=== PATIENT | male | born 1945 | race Caucasian/White ===

== ENCOUNTER 2017-08-03 12:54 | Inpatient (IN) | payer OTHER ==
[2017-08-03 13:27] LABS: HEMATOCRIT 57.4 % (38.0-50.0); HEMOGLOBIN 19.2 G/DL (12.5-16.6); MCH 32.5 PG (29.0-34.0); MCHC 33.4 G/DL (30.0-36.0); MCV 97.3 FL (86-99); PLATELET COUNT 201 K/uL (156-360); RBC DIS.WIDTH-CV 14.9 % (11.8-14.6); RBC DIS.WIDTH-SD 53.5 % (39-53); WHITE BLOOD COUNT 8.4 K/uL (4.1-10.2)
[2017-08-03 13:49] LABS: TROP-I INTERPRETATION NEGATIVE; TROPONIN-I 0.02 ng/mL (0.0-0.30)
[2017-08-03 14:02] LABS: ALBUMIN 4.1 G/DL (3.2-4.8); CHLORIDE 98 MEQ/L (99-109); POTASSIUM 5.5 MEQ/L (3.7-5.4); SODIUM 134 MEQ/L (136-147); TOTAL BILIRUBIN 0.6 MG/DL (0.0-1.0)
[2017-08-03 14:08] LABS: ALKALINE PHOSPHATASE 95 IU/L (3-129); ALT (GPT) 20 IU/L (3-49); AST (GOT) 35 IU/L (2-34); CREATININE 0.9 MG/DL (0.6-1.3); GFR ESTIMATE (CALCULATED) > 59 mL/min/ (58.99-99999); GLUCOSE 101 mg/dL (70-99); TOTAL PROTEIN 6.9 G/DL (6.4-8.3); UREA NITROGEN (BUN) 16 mg/dL (9-23)
[2017-08-03 14:09] LABS: ANISOCYTOSIS 1+; BASOPHIL (%) 0.1 % (0-1); EOSINOPHIL (%) 0 % (0-5); IMMATURE GRANULOCYTE (%) 0.4 % (0.0-0.7); LYMPHOCYTE COUNT 0.6 K/uL (1.0-2.8); MACROCYTES 1+; MONOCYTE (%) 9.5 % (3-12); MONOCYTE COUNT 0.8 K/uL (0-0.8); PLAT.SUFFICIENCY ADEQUATE
[2017-08-03 14:13] LABS: BASE EXCESS -1.1 mEq/L (-3 to +3); BICARBONATE 25.4 mEq/L (22-26); CARBOXY HGB 1.4 % (0-5); PO2 69 mm Hg (80-100); pH 7.34 (7.35-7.45)
[2017-08-03 14:14] LABS: COMMENTS - BLOOD GASES A+C+; DEVICE HHFNC; FI02 100 %; O2 FLOW 40 L/MIN; PCO2 47 mm Hg (35-45); SITE RR
[2017-08-03 14:42] LABS: POTASSIUM 5.4 MEQ/L (3.7-5.4)
[2017-08-03 14:47] LABS: NO-CHARGE AST (GOT) 29 IU/L (15-37)
[2017-08-03 17:39] VITALS: BP 130/60
[2017-08-03 17:45] VITALS: BP 130/60
[2017-08-03 18:45] VITALS: BP 130/60
[2017-08-03 22:12] VITALS: BP 128/74
[2017-08-04 00:07] VITALS: BP 138/77
[2017-08-04 03:35] VITALS: BP 112/68
[2017-08-04 07:05] VITALS: BP 118/67
[2017-08-04 11:46] VITALS: BP 129/72
[2017-08-04] MEDS ORDERED: PREDNISONE5 MG PO (14:15)
[2017-08-04] MEDS ORDERED: FOLIC ACID1 MG PO ×2 (14:17→15:19)
[2017-08-04] MEDS ORDERED: METHOTREXATE2.5 MG PO (14:18)
[2017-08-04] MEDS ORDERED: SIMVASTATIN10 MG PO (14:19)
[2017-08-04] MEDS ORDERED: LO-DOSE ASPIRIN81 M1 PO (14:20)
[2017-08-04 15:27] VITALS: BP 118/69
[2017-08-04 21:00] VITALS: BP 134/76
[2017-08-05] VITALS (7 sets, daily range): BP systolic 108–133; BP diastolic 56–82
[2017-08-06 04:06] VITALS: BP 115/56
[2017-08-06 05:49] LABS: HEMATOCRIT 53.5 % (38.0-50.0); MCH 31.1 PG (29.0-34.0); MCV 97.4 FL (86-99); RBC DIS.WIDTH-CV 14.3 % (11.8-14.6); RBC DIS.WIDTH-SD 51.6 % (39-53); RED BLOOD COUNT 5.49 M/uL (4.00-5.50); WHITE BLOOD COUNT 6.6 K/uL (4.1-10.2)
[2017-08-06 05:55] LABS: HEMOGLOBIN 17.1 G/DL (12.5-16.6); PLATELET COUNT 278 K/uL (156-360)
[2017-08-06 06:17] LABS: ALBUMIN 3.5 G/DL (3.2-4.8); ALKALINE PHOSPHATASE 72 IU/L (3-129); ALT (GPT) 26 IU/L (3-49); AST (GOT) 22 IU/L (2-34); CHLORIDE 96 MEQ/L (99-109); CREATININE 0.9 MG/DL (0.6-1.3); GFR ESTIMATE (CALCULATED) > 59 mL/min/ (58.99-99999); POTASSIUM 4.4 MEQ/L (3.7-5.4); SODIUM 132 MEQ/L (136-147); TOTAL PROTEIN 5.9 G/DL (6.4-8.3); UREA NITROGEN (BUN) 21 mg/dL (9-23)
[2017-08-06 06:18] LABS: GLUCOSE 156 mg/dL (70-99); TOTAL BILIRUBIN 0.9 MG/DL (0.0-1.0)
[2017-08-06 08:45] VITALS: BP 122/66
[2017-08-06 11:47] VITALS: BP 108/59
[2017-08-06 16:45] VITALS: BP 112/60
[2017-08-06 19:30] VITALS: BP 119/66
[2017-08-06 23:00] VITALS: BP 123/73
[2017-08-07 04:00] VITALS: BP 130/64
[2017-08-07 08:45] VITALS: BP 106/63
[2017-08-07 12:40] VITALS: BP 110/64
[2017-08-07 16:45] VITALS: BP 123/70
[2017-08-07 19:00] VITALS: BP 120/70
[2017-08-07 22:30] VITALS: BP 120/67
[2017-08-08 03:30] VITALS: BP 126/69
[2017-08-08 07:09] VITALS: BP 100/62
[2017-08-08 11:00] VITALS: BP 110/62
[2017-08-08 15:06] VITALS: BP 124/67
[2017-08-08 19:41] VITALS: BP 118/64
[2017-08-09] VITALS (7 sets, daily range): BP systolic 102–145; BP diastolic 60–68
[2017-08-09 06:15] LABS: HEMATOCRIT 57.5 % (38.0-50.0); HEMOGLOBIN 18.1 G/DL (12.5-16.6); MCH 31.2 PG (29.0-34.0); MCHC 31.5 G/DL (30.0-36.0); MCV 99.1 FL (86-99); PLATELET COUNT 234 K/uL (156-360); RBC DIS.WIDTH-CV 14.3 % (11.8-14.6); RBC DIS.WIDTH-SD 52.3 % (39-53)
[2017-08-09 08:19] LABS: CHLORIDE 97 MEQ/L (99-109); CREATININE 1.2 MG/DL (0.6-1.3); GFR ESTIMATE (CALCULATED) > 59 mL/min/ (58.99-99999); GLUCOSE 92 mg/dL (70-99); POTASSIUM 4.7 MEQ/L (3.7-5.4)
[2017-08-09 08:38] LABS: SODIUM 139 MEQ/L (136-147); UREA NITROGEN (BUN) 34 mg/dL (9-23)
[2017-08-10 07:43] VITALS: BP 99/65
[2017-08-10 12:08] VITALS: BP 102/60
[2017-08-10 15:00] VITALS: BP 102/72
[2017-08-10 20:37] VITALS: BP 120/65
[2017-08-10 23:57] VITALS: BP 121/79
[2017-08-11 04:16] VITALS: BP 125/61
[2017-08-11 06:49] LABS: HEMATOCRIT 52.5 % (38.0-50.0); HEMOGLOBIN 16.6 G/DL (12.5-16.6); MCHC 31.6 G/DL (30.0-36.0); MCV 98.1 FL (86-99); PLATELET COUNT 215 K/uL (156-360); RBC DIS.WIDTH-CV 13.8 % (11.8-14.6); RBC DIS.WIDTH-SD 50.3 % (39-53); RED BLOOD COUNT 5.35 M/uL (4.00-5.50)
[2017-08-11 07:18] LABS: CHLORIDE 99 MEQ/L (99-109); CREATININE 0.8 MG/DL (0.6-1.3); GFR ESTIMATE (CALCULATED) > 59 mL/min/ (58.99-99999); GLUCOSE 158 mg/dL (70-99); POTASSIUM 4.9 MEQ/L (3.7-5.4); SODIUM 136 MEQ/L (136-147); UREA NITROGEN (BUN) 30 mg/dL (9-23)
[2017-08-11 07:47] VITALS: BP 130/74
[2017-08-11 11:39] VITALS: BP 128/67
[2017-08-11 15:25] VITALS: BP 111/65
[2017-08-11 19:05] VITALS: BP 116/66
[2017-08-12 01:22] VITALS: BP 116/69
[2017-08-12 04:02] VITALS: BP 123/66
[2017-08-12 08:48] VITALS: BP 122/62
[2017-08-12 12:55] VITALS: BP 119/67
[2017-08-12 16:40] VITALS: BP 118/64
[2017-08-12 19:06] VITALS: BP 128/67
[2017-08-13 01:17] VITALS: BP 119/60
[2017-08-13 05:00] VITALS: BP 112/59
[2017-08-13 08:03] VITALS: BP 124/61
[2017-08-13 12:07] VITALS: BP 118/58
[2017-08-13 15:51] LABS: BASE EXCESS 2.8 mEq/L (-3 to +3); BICARBONATE 28.5 mEq/L (22-26); CARBOXY HGB 1.5 % (0-5); COMMENTS - BLOOD GASES A+C+; DEVICE HHFNC; METHEMOGLOBIN 1.6 % (0-1.5); O2 FLOW 40 L/MIN; PCO2 46 mm Hg (35-45); PO2 69 mm Hg (80-100); SITE RR
[2017-08-13 15:52] LABS: FI02 100 %; TOTAL RESP RATE 20 resp/min
[2017-08-13 16:40] VITALS: BP 131/57
[2017-08-13 20:40] VITALS: BP 144/74
[2017-08-14] VITALS (7 sets, daily range): BP systolic 117–143; BP diastolic 59–74
[2017-08-14 06:06] LABS: HEMATOCRIT 52.7 % (38.0-50.0); MCH 31.5 PG (29.0-34.0); MCHC 32.3 G/DL (30.0-36.0); MCV 97.8 FL (86-99); PLATELET COUNT 215 K/uL (156-360); RBC DIS.WIDTH-CV 13.5 % (11.8-14.6); RBC DIS.WIDTH-SD 49.1 % (39-53); RED BLOOD COUNT 5.39 M/uL (4.00-5.50); WHITE BLOOD COUNT 9.4 K/uL (4.1-10.2)
[2017-08-14 06:38] LABS: CHLORIDE 97 MEQ/L (99-109); CREATININE 0.8 MG/DL (0.6-1.3); GFR ESTIMATE (CALCULATED) > 59 mL/min/ (58.99-99999); GLUCOSE 153 mg/dL (70-99); POTASSIUM 5.3 MEQ/L (3.7-5.4); SODIUM 133 MEQ/L (136-147); UREA NITROGEN (BUN) 25 mg/dL (9-23)
[2017-08-15 04:13] VITALS: BP 122/60
[2017-08-15 07:01] VITALS: BP 118/74
[2017-08-15] MEDS ORDERED: DUONEB 2.5-0.5 M3 ML AEROSOL (09:45)
[2017-08-15 11:20] VITALS: BP 130/68
[2017-08-15] MEDS ORDERED: AZITHROMYCIN500 M1 PO (13:36)
[2017-08-15] MEDS ORDERED: PREDNISONE10 MG PO (13:36)
[2017-08-15] MEDS ORDERED: ADVAIR 250/501 DISK IH (13:36)
[2017-08-15] MEDS ORDERED: SPIRIVA RESPIMAT4 GM IH (13:36)
== END 2017-08-15 14:35 | disposition designated cancer center or children's hospital (05) | DRG 189 ==
LOC: EME 12:54 → EDOF 15:23 → 4EAST 15:23 → ENRESERV 15:27 → 4EAST 17:18
PROVIDERS: Emergency Medicine; Family Medicine; Internal Medicine Pulmonary Disease
DX: J96.01 Acute respiratory failure with hypoxia (principal); J44.1 Chronic obstructive pulmonary disease with (acute) exacerbation; J10.1 Influenza due to other identified influenza virus with other respiratory manifestations; Z99.81 Dependence on supplemental oxygen; D75.1 Secondary polycythemia; E87.1 Hypo-osmolality and hyponatremia; L40.50 Arthropathic psoriasis, unspecified; E78.5 Hyperlipidemia, unspecified; F17.210 Nicotine dependence, cigarettes, uncomplicated; Z71.6 Tobacco abuse counseling; Z93.3 Colostomy status; Z90.49 Acquired absence of other specified parts of digestive tract; Z79.899 Other long term (current) drug therapy; Z79.52 Long term (current) use of systemic steroids
CPT/HCPCS: 36600; 71045; 71275; 80048; 80053; 82803; 83880; 84484; 84999; 85025; 85027; 85379; 87502; 93005; 93306; 94010; 94640; 94640 76; 94667; 94668; 94760; 94799; 99202; 99281; 99285; J1644; J2920; J2930; J7040; J7512; J8610